=== PATIENT | female | born 1985 | race Caucasian/White ===

== ENCOUNTER → 2016-12-03 | Outpatient (CLI) | payer BC ==
[~2016-12-03] MED LIST: ASPIRIN 81M81 MG/TA2 PO; MOTRIN 800800 MG/TAB PO; PERCOCET 325 MG1 TA2 PO; PRENATAL MVI PO
== END ==
LOC: LDRO 11-18 10:53 → ZCOL.LAB 14:40
DX: Z11.2 Encounter for screening for other bacterial diseases (principal)

== ENCOUNTER 2018-08-28 13:01 | Day surgery (SDC) | payer BC ==
[~2018-08-28] VITALS: Ht 160 cm; Wt 75.9 kg
[2018-08-28] VITALS (9 sets, daily range): BP systolic 116–133; BP diastolic 52–73; PULSE 55–85; TEMP 97.4–97.5
[2018-08-28] MEDS ORDERED: FIORICET 325 MG1 TA1 PO (13:45)
[2018-08-28] MEDS ORDERED: MAXALT10 MG PO (13:46)
[2018-08-28] MEDS ORDERED: MOTRIN 800800 MG/TAB PO (14:15)
[2018-08-28] MEDS ORDERED: PERCOCET 325 MG1 TA2 PO (14:15)
[2018-08-29 01:15] VITALS: BP 106/55; PULSE 69; TEMP 98.3
[2018-08-29 05:30] VITALS: BP 112/47; PULSE 85; TEMP 98.4
[2018-08-29 06:50] VITALS: BP 86/63; PULSE 69; TEMP 98.2
== END 2018-08-29 09:10 | disposition home or self-care (01) ==
LOC: SDCO 13:01 → OB 17:55 → SDCO 08-29 09:10
DX: N80.0 Endometriosis of uterus (principal); N92.0 Excessive and frequent menstruation with regular cycle; N73.6 Female pelvic peritoneal adhesions (postinfective); G43.909 Migraine, unspecified, not intractable, without status migrainosus; Z80.3 Family history of malignant neoplasm of breast; Z83.3 Family history of diabetes mellitus; Z82.49 Family history of ischemic heart disease and other diseases of the circulatory system
CPT/HCPCS: OP; A4314; J1100; J1885; J2405; J2704; J2710; J3010; J7120; Q9968

== ENCOUNTER → 2020-09-09 | Outpatient (CLI) | payer BC ==
[~2020-09-09] MED LIST changes: +FIORICET 325 MG1 TA1 PO; +MAXALT10 MG PO
== END ==
LOC: MC.RAD 11:19
DX: Z12.31 Encounter for screening mammogram for malignant neoplasm of breast (principal); Z80.3 Family history of malignant neoplasm of breast

== ENCOUNTER → 2021-12-15 | Outpatient (CLI) | payer BC | LOC: MC.RAD 08:15 | DX: Z12.31 Encounter for screening mammogram for malignant neoplasm of breast (principal); Z80.3 Family history of malignant neoplasm of breast ==

== ENCOUNTER → 2022-12-16 | Outpatient (CLI) | payer BC | LOC: MC.RAD 08:17 | DX: Z12.31 Encounter for screening mammogram for malignant neoplasm of breast (principal); Z80.3 Family history of malignant neoplasm of breast ==